=== PATIENT | female | born 1955 | race Caucasian/White ===

== ENCOUNTER 2025-06-19 07:14 | Day surgery (SDC) | payer OTHER ==
[~2025-06-19] VITALS: Ht 177.8 cm; Wt 88.2 kg
[~2025-06-19 07:14] MED LIST: ATOR10 PO; Aspir 8181 MG PO; DIPH50 PO; DYAZIDE 37.5-21 EACH PO; LOVA20 PO; NAPR220 PO; POTA10T PO
[2025-06-19] MEDS ORDERED: Lidocaine 2%-Epineph 1:200000 20 ML SDV ONE (09:00)
[2025-06-19] MEDS ORDERED: FentaNYL Citrate 50 MCG/ML 2 ML Injection ONE (09:07)
--- NOTE | 2025-06-19 09:12 | NUR ---
06/19/25 0912 VIRGIE CHILDS Hearing aids removed, placed in cases and placed in locker. Pt has two cases, each case contains one working, one broken hearing aid
[2025-06-19] MEDS ORDERED: Dexamethasone Sod Phos 10 MG/ML 1ML VIAL ONE (09:31)
[2025-06-19] MEDS ORDERED: Ondansetron HCl 2 MG / ML 2ML Vial ONE ×2 (09:50→10:36)
[2025-06-19] MEDS ORDERED: Sugammadex Sodium 200 MG/2ML SDV (100 MG/ML) ONE (10:05)
[2025-06-19 10:52] VITALS: BP 135/69
--- NOTE | 2025-06-19 11:18 | NUR ---
06/19/25 1118 SUNDAY DIANA DENIES PAIN. STATES DIZZY, SOME NAUSEA AND PRESSURE AROUND INCISION AREA. DENIES TROUBLE BREATHING. COOL CLOTH OVER FOREHEAD TO HELP WITH NAUSEA. APPRENSIVE TO FOOD OR DRINK. JUST TRYING TO TAKE A SIP OF HER WARM TEA
== END 2025-06-19 12:15 | disposition home or self-care (01) ==
LOC: ORSCSDS 07:14
PROVIDERS: Otolaryngology
PROC: 07B20ZX Excision of Left Neck Lymphatic, Open Approach, Diagnostic (ICD-10-PCS; principal; 2025-06-19 09:00)
PROC: 07B10ZX Excision of Right Neck Lymphatic, Open Approach, Diagnostic (ICD-10-PCS; principal; 2025-06-19 09:00)
DX: C7B.8 Other secondary neuroendocrine tumors (principal); Z85.3 Personal history of malignant neoplasm of breast; Z79.899 Other long term (current) drug therapy
CPT/HCPCS: 88184; 88185; 88305; 88341; 88342; J1100; J2405; J2704; J3010

== ENCOUNTER → 2025-06-27 | Outpatient (CLI) | payer OTHER | END | disposition home or self-care (01) | LOC: LAB SHORT 07:26 → LAB 07:26 | DX: D11.0 Benign neoplasm of parotid gland (principal); D49.0 Neoplasm of unspecified behavior of digestive system; R59.0 Localized enlarged lymph nodes | CPT/HCPCS: 88173 ==